=== PATIENT | female | born 1980 | race Caucasian/White ===

== ENCOUNTER 2017-10-01 09:51 | Emergency (ER) | payer MEDICAID ==
[2017-10-01 10:40] VITALS: BP 131/78
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
== END 2017-10-01 15:30 | disposition home or self-care (01) ==
LOC: LL.ED 09:51
DX: T76.21XA Adult sexual abuse, suspected, initial encounter (principal); S50.11XA Contusion of right forearm, initial encounter; R82.5 Elevated urine levels of drugs, medicaments and biological substances; F17.210 Nicotine dependence, cigarettes, uncomplicated; Z88.1 Allergy status to other antibiotic agents; Z88.5 Allergy status to narcotic agent; X58.XXXA Exposure to other specified factors, initial encounter
CPT/HCPCS: 36415; 80305; 81001; 81025; 86703; 87491; 87591; 99291; 99292

== ENCOUNTER 2021-11-20 16:17 | Emergency (ER) | payer BC, MEDICAID ==
[2021-11-20 16:32] VITALS: BP 125/67; PULSE 110
== END 2021-11-20 17:00 | disposition home or self-care (01) ==
LOC: LL.ED 16:17
DX: L03.317 Cellulitis of buttock (principal); K21.9 Gastro-esophageal reflux disease without esophagitis; M19.90 Unspecified osteoarthritis, unspecified site; Z88.5 Allergy status to narcotic agent; Z88.1 Allergy status to other antibiotic agents; Z79.899 Other long term (current) drug therapy; Z79.82 Long term (current) use of aspirin
CPT/HCPCS: 99282; 99283

== ENCOUNTER 2022-02-28 14:43 | Emergency (ER) | payer SELFPAY ==
[2022-02-28 19:09] VITALS: BP 126/64; PULSE 88
== END 2022-02-28 16:30 | disposition home or self-care (01) ==
LOC: LL.ED 14:43
DX: S93.491A Sprain of other ligament of right ankle, initial encounter (principal); Z88.1 Allergy status to other antibiotic agents; Z88.5 Allergy status to narcotic agent; X50.1XXA Overexertion from prolonged static or awkward postures, initial encounter; Y93.89 Activity, other specified
CPT/HCPCS: 73610-RT; 99283; 99283-25

== ENCOUNTER 2022-03-26 09:38 | Emergency (ER) | payer MEDICAID ==
[2022-03-26] MEDS ORDERED: Dextromethorphan/guaiFENesin 600-30 MG Tab.ER PO ONE (10:06)
[2022-03-26 10:09] VITALS: BP 126/91; PULSE 94
[2022-03-26] MEDS ORDERED: Fluticasone NASAL Spray 16 GM Bottle NASBOTH SCH (10:12)
[2022-03-27] MEDS ORDERED: Fluticasone NASAL Spray 16 GM Bottle NASBOTH SCH (08:00)
== END 2022-03-26 10:35 | disposition home or self-care (01) ==
LOC: LL.ED 09:38
DX: J34.89 Other specified disorders of nose and nasal sinuses (principal); J06.9 Acute upper respiratory infection, unspecified; Z88.2 Allergy status to sulfonamides; Z88.5 Allergy status to narcotic agent
CPT/HCPCS: 99283; A9270-GY

== ENCOUNTER 2023-11-14 19:35 | Emergency (ER) | payer MEDICAID ==
[2023-11-14 19:58] LABS: BASOPHILS ABSOLUTE AUTO 0.02 K/uL (0.00-0.20); BASOPHILS PERCENT AUTO 0.2 % (0.0-2.0); EOSINOPHILS ABSOLUTE AUTO 0.25 K/uL (0.00-0.50); EOSINOPHILS PERCENT AUTO 2.5 % (0.0-5.0); HEMATOCRIT 40.5 % (34.0-46.0); HEMOGLOBIN 13.6 g/dL (11.7-15.5); LYMPHOCYTES ABSOLUTE AUTO 1.68 K/uL (0.50-3.50); MEAN CORPUSCULAR HEMOGLOBIN 27.8 pg (28.2-33.3); MEAN CORPUSCULAR HGB CONC 33.6 g/dL (31.7-36.0); MEAN CORPUSCULAR VOLUME 82.7 fL (84.0-98.0); MONOCYTES ABSOLUTE AUTO 0.76 K/uL (0.00-1.00); MONOCYTES PERCENT AUTO 7.7 % (2.0-14.0); NEUTROPHILS ABSOLUTE AUTO 7.19 K/uL (1.40-7.00); NEUTROPHILS PERCENT AUTO 72.6 % (45.0-80.0); PLATELET COUNT,PLT 347 K/uL (150-350); RED CELL DISTRIBUTION WIDTH 13.7 % (11.2-14.1); WHITE BLOOD CELL COUNT,WBC 9.9 K/uL (4.0-10.2)
[2023-11-14 20:20] LABS: ALBUMIN 3.6 g/dL (3.4-5.0); ANION GAP 4.1 meq/L (7-15); BILIRUBIN TOTAL 0.6 mg/dL (0.2-1.0); CARBON DIOXIDE,CO2 29.9 mmol/L (21.0-32.0); CREATININE 0.8 mg/dL (0.51-1.17); EST CRCL DRUG DOSING (CG) 68.42 mL/min; POTASSIUM,K 4.4 mmol/L (3.5-5.1); PROTEIN TOTAL,TP 7.3 g/dL (6.4-8.2)
[2023-11-14 21:41] VITALS: BP 145/81; PULSE 80
== END 2023-11-14 21:25 | disposition home or self-care (01) ==
LOC: LL.ED 19:35
DX: K59.00 Constipation, unspecified (principal); K21.9 Gastro-esophageal reflux disease without esophagitis; Z79.899 Other long term (current) drug therapy; Z88.2 Allergy status to sulfonamides; Z88.5 Allergy status to narcotic agent
CPT/HCPCS: 36415; 74019; 80053; 85025; 99284

== ENCOUNTER 2025-05-30 10:45 | Day surgery (SDC) | payer BC ==
[~2025-05-30 10:45] MED LIST: Lactated Ringers 1,000 ML IV SCH; Midazolam 1 MG/ML 2 ML SDV ONE; Propofol 200 MG/20 ML SDV ONE; Sodium Chloride 0.9% 10 ML Syringe FLUSH PRN
[2025-05-30 13:05] VITALS: BP 112/71; PULSE 79
== END 2025-05-30 13:27 | disposition home or self-care (01) ==
LOC: LL.SDS 10:45
PROVIDERS: ATTEND Surgery
DX: K20.0 Eosinophilic esophagitis (principal); K21.9 Gastro-esophageal reflux disease without esophagitis; Z88.8 Allergy status to other drugs, medicaments and biological substances; Z88.2 Allergy status to sulfonamides; Z72.0 Tobacco use; Z79.82 Long term (current) use of aspirin; Z79.899 Other long term (current) drug therapy
CPT/HCPCS: 00731; J2250; J2704